=== PATIENT | female | born 1975 | race Caucasian/White ===

== ENCOUNTER → 2016-08-06 | Outpatient (CLI) | payer MEDICARE, OTHER ==
[2016-08-06 13:34] LABS: Blood Urea Nitrogen 11 mg/dL (7-17); Non-African American GFR(MDRD) >60 (>60 ml/min/1.73 sqM)
== END | disposition home or self-care (01) ==
LOC: LABWHC1 12:34
PROVIDERS: ATTEND Anesthesiology Pain Medicine
DX: M54.5 Low back pain (principal)
CPT/HCPCS: 36415; 82565; 84520

== ENCOUNTER → 2016-08-08 | Outpatient (CLI) | payer MEDICARE, OTHER ==
--- NOTE | 2016-08-08 14:28 | MR ---
EXAMINATION TYPE: MR lumbar spine wo/w con DATE OF EXAM: 08/08/2016 COMPARISON: NONE. Contrast: 20 mL MultiHance HISTORY: Low back pain TECHNIQUE: T1 and T2 axial and sagittal, postcontrast T1 axial and sagittal images of the lumbar spi ne are submitted. FINDINGS: There is findings suggestive of previous surgery involving the lower lumbar spine which kimmie ears stable. Slight levoconvex scoliotic curvature noted. At L1-2 there is mild degenerative disc disease. No disc herniation or canal stenosis. No foraminal e ncroachment. At L2-3 there is mild hypertrophic change of the facets and degenerative disc disease. No disc hernia tion or canal stenosis. Neural foramina patent. At L3-4 there is mild hypertrophic change of the facets. No disc herniation or canal stenosis. No for aminal encroachment. At L4-5 there is severe degenerative disc disease with discogenic marrow changes. Broad-based central and right paracentral disc protrusion with facet arthropathy and ligamentum flavum hypertrophy resul ts in mild spinal stenosis and moderate right-sided foraminal encroachment. At L5-S1 there is severe degenerative disc disease with a focal central disc herniation which is stab le results in moderate compression of the thecal sac. Facet arthropathy is noted with moderate left-s ided foraminal encroachment and very mild right-sided foraminal encroachment. IMPRESSION: 1. Stable disc protrusion or herniations L4-L5 and L5-S1 with stable appearing foraminal encroachment as above. 2. Postsurgical change. 3. Multilevel degenerative disc disease.
== END | disposition home or self-care (01) ==
LOC: RADMRIMAIN 13:02
PROVIDERS: ATTEND Anesthesiology Pain Medicine
DX: M51.17 Intervertebral disc disorders with radiculopathy, lumbosacral region (principal); M96.1 Postlaminectomy syndrome, not elsewhere classified; Z98.890 Other specified postprocedural states
CPT/HCPCS: 72158; A9577

== ENCOUNTER → 2017-01-08 | Outpatient (CLI) | payer MEDICARE, OTHER ==
[2017-01-08 10:27] LABS: ALT 56 U/L (9-52); AST 30 U/L (14-36); Alkaline Phosphatase 140 U/L (38-126); Anion Gap 14 mmol/L; Blood Urea Nitrogen 11 mg/dL (7-17); Calcium 9.7 mg/dL (8.4-10.2); Carbon Dioxide 25 mmol/L (22-30); Chloride 96 mmol/L (98-107); Cholesterol 193 mg/dL (<200); Glucose 359 mg/dL (74-99); HDL Cholesterol 55 mg/dL (40-60); Non-African American GFR(MDRD) >60 (>60 ml/min/1.73 sqM); Potassium 4.2 mmol/L (3.5-5.1); Sodium 135 mmol/L (137-145); Total Bilirubin 0.5 mg/dL (0.2-1.3); Total Protein 7.3 g/dL (6.3-8.2)
[2017-01-08 15:01] LABS: Urine Creatinine 75.5 mg/dL
== END | disposition home or self-care (01) ==
LOC: LABWHC1 09:27
PROVIDERS: ATTEND Internal Medicine Endocrinology, Diabetes & Metabolism
DX: E11.65 Type 2 diabetes mellitus with hyperglycemia (principal)
CPT/HCPCS: 36415; 80053; 80061; 82043; 82570

== ENCOUNTER → 2017-03-13 | Outpatient (CLI) | payer MEDICARE, OTHER ==
--- NOTE | 2017-03-14 16:24 | CT ---
EXAMINATION TYPE: CT brain wo con DATE OF EXAM: 03/13/2017 COMPARISON: 03/20/2013 HISTORY: 41-year-old female Memory loss and confusion TECHNIQUE: Examination was done in axial plane without intravenous contrast. Coronal and sagittal r econstructions performed. CT DLP: 1165 mGycm Automated exposure control for dose reduction was used. FINDINGS: There is no evidence of acute intracranial hemorrhage, acute ischemic changes, mass, mass-effect, or extra-axial fluid collection. There is no effacement of cerebral sulci or basal subarachnoid cister ns. There is no hydrocephalus. There is no midline shift. Landeros-white matter distinction is preserv ed. Paranasal sinuses and mastoid air cells are well pneumatized. Orbits and globes are intact. IMPRESSION: No acute intracranial abnormality seen.
== END | disposition home or self-care (01) ==
LOC: RADCTMAIN 10:35
PROVIDERS: ATTEND Internal Medicine
DX: R41.9 Unspecified symptoms and signs involving cognitive functions and awareness (principal); Z88.1 Allergy status to other antibiotic agents; Z88.8 Allergy status to other drugs, medicaments and biological substances
CPT/HCPCS: 70450

== ENCOUNTER → 2017-07-26 | Outpatient (CLI) | payer MEDICARE, OTHER ==
--- NOTE | 2017-07-26 14:36 | XR ---
Left hand HISTORY: Left hand pain 3 views of the left hand No comparisons Bone mineralization, joint spaces and alignment are maintained. No fracture or dislocation. IMPRESSION: No significant abnormality is evident. Wrist MRI may be of benefit.
== END | disposition home or self-care (01) ==
LOC: RADXRMAIN 13:16
PROVIDERS: ATTEND Anesthesiology Pain Medicine
DX: M79.642 Pain in left hand (principal)

== ENCOUNTER → 2018-02-16 | Outpatient (CLI) | payer MEDICARE, OTHER ==
[2018-02-16 16:16] LABS: ALT 27 U/L (9-52); AST 19 U/L (14-36); Albumin 4.2 g/dL (3.5-5.0); Alkaline Phosphatase 175 U/L (38-126); Anion Gap 13 mmol/L; Blood Urea Nitrogen 13 mg/dL (7-17); Calcium 9.7 mg/dL (8.4-10.2); Carbon Dioxide 24 mmol/L (22-30); Chloride 100 mmol/L (98-107); Glucose 489 mg/dL (74-99); Potassium 5.5 mmol/L (3.5-5.1); Sodium 137 mmol/L (137-145); Total Bilirubin 0.3 mg/dL (0.2-1.3); Total Protein 7.2 g/dL (6.3-8.2)
--- NOTE | 2018-02-16 16:29 | MR ---
EXAMINATION TYPE: MR lumbar spine wo con DATE OF EXAM: 02/16/2018 COMPARISON: HISTORY: LBP, LLE radic, hx surgery 2006 TECHNIQUE: Multiplanar, multisequence images of the lumbar spine were acquired. L1-L2: Normal disc appearance without desiccation. No herniation, protrusion or disc bulging. No ca nal stenosis is present. Foramina are patent bilaterally. L2-L3: Normal disc appearance without desiccation. No herniation, protrusion or disc bulging. No ca nal stenosis is present. Foramina are patent bilaterally. L3-L4: Normal disc appearance without desiccation. No herniation, protrusion or disc bulging. No ca nal stenosis is present. Foramina are patent bilaterally. L4-L5: Posterior broad-based disc bulge contacts anterior thecal sac, circumferential extension of en dplate disc complex is noted without significant foraminal encroachment. No significant central steno sis. Facet arthropathy with hypertrophy of ligamentum flavum causes some posterior lateral mass effec t on the thecal sac. L5-S1: Facet arthropathy changes present. No significant central stenosis. There is a posterior exten bri of endplate disc complex causing anterior mass effect on the thecal sac extending towards the le ft midline encroaching on the left neural foramen, there is some anterior mass effect on the thecal s ac and possibly proximal S1 nerve root left greater than right. Lumbar segments are intact. No paraspinal masses are identified. Conus medullaris has a normal appe arance. There is loss of disc height and signal greatest at L4-5, L5-S1 with associated spondylosis, endplate discogenic marrow signal change. There is a levoscoliosis suspected. IMPRESSION: Degenerative disc disease, facet arthropathy as described with some foraminal encroachment greatest a t L5-S1 on the left. There is a mild spinal curvature.
== END | disposition home or self-care (01) ==
LOC: RADMRIMAIN 15:23
PROVIDERS: ATTEND Physician Assistant
DX: M51.37 Other intervertebral disc degeneration, lumbosacral region (principal); M46.87 Other specified inflammatory spondylopathies, lumbosacral region; M43.8X6 Other specified deforming dorsopathies, lumbar region
CPT/HCPCS: 72148; 80053

== ENCOUNTER → 2018-03-14 | Outpatient (CLI) | payer MEDICARE, OTHER ==
--- NOTE | 2018-03-14 14:28 | XR ---
EXAMINATION TYPE: XR thoracic spine complete DATE OF EXAM: 03/14/2018 COMPARISON: NONE HISTORY: Pain Alignment is anatomic. There is no compression deformities. Vertebral body height and disc interspa toby are maintained. There is a curvature of the spine. Hypertrophic and degenerative changes are see n involving the thoracic spine. No compression deformities. IMPRESSION: 1. Multilevel degenerative disc disease. Correlate with MRI as clinically warranted.
== END | disposition home or self-care (01) ==
LOC: RADXRMAIN 13:59
PROVIDERS: ATTEND Anesthesiology Pain Medicine
DX: M51.34 Other intervertebral disc degeneration, thoracic region (principal)
CPT/HCPCS: 72072

== ENCOUNTER → 2018-07-21 | Outpatient (CLI) | payer MEDICARE, OTHER ==
--- NOTE | 2018-07-21 12:48 | CT ---
EXAMINATION TYPE: CT brain wo con DATE OF EXAM: 07/21/2018 COMPARISON: 03/13/2017 INDICATION: TIA, dizziness, unable to form sentences DLP: 1135 mGycm, Automated exposure control for dose reduction was used. CONTRAST: None CT of the brain is performed utilizing 3 mm thick sections through the posterior fossa and 3 mm thick sections through the remaining calvarium. Study is performed within 24 hours of arrival to the hosp [facility]. No abnormal hyperdensity is present to suggest an acute intracranial hemorrhage. No mass lesion is evident. No acute infarcts are evident. Ventricles and sulci are appropriate for the patient age. Paranasal sinuses and mastoid air cells within the [id number] are clear. IMPRESSIONS: 1. No acute intracranial process.
== END | disposition home or self-care (01) ==
LOC: RADCTMAIN 11:51
PROVIDERS: ATTEND Internal Medicine
DX: G45.9 Transient cerebral ischemic attack, unspecified (principal); R40.4 Transient alteration of awareness
CPT/HCPCS: 70450

== ENCOUNTER → 2018-08-15 | Outpatient (CLI) | payer MEDICARE ==
--- NOTE | 2018-08-16 08:29 | US ---
EXAMINATION TYPE: US carotid duplex BILAT DATE OF EXAM: 08/15/2018 COMPARISON: NONE CLINICAL HISTORY: R47.9 Speech disturbance,R42 Vertigo,Z86.[address] EXAM MEASUREMENTS: RIGHT: Peak Systolic Velocity (PSV) cm/sec ----- Right CCA: 76.5 ----- Right ICA: 72.8 ----- Right ECA: 50.0 ICA/CCA ratio: 1.0 RIGHT: End Diastole cm/sec ----- Right CCA: 23.5 ----- Right ICA: 33.6 ----- Right ECA: 10.9 LEFT: Peak Systolic Velocity (PSV) cm/sec ----- Left CCA: 99.3 ----- Left ICA: 71.5 ----- Left ECA: 95.2 ICA/CCA ratio: 0.7 LEFT: End Diastole cm/sec ----- Left CCA: 26.0 ----- Left ICA: 33.6 ----- Left ECA: 21.6 VERTEBRALS (direction of flow): Right Vertebral: Antegrade Left Vertebral: Antegrade Rhythm: Normal No significant stenosis seen IMPRESSION: Mild degree of grayscale atheromatous plaquing with no sonographically evident hemodynam ically significant stenosis within either visualized carotid arterial system. Criteria for Assigning % of Stenosis / Diameter reduction (Estimation based on the indirect measurements of the internal carotid artery velocities (ICA PSV). 1. Normal (no stenosis)=ICA PSV < 125 cm/s: ratio < 2.0: ICA EDV<40 cm/s. 2. Less than 50% stenosis=ICA PSV < 125 cm/s: ratio < 2.0: ICA EDV<40 cm/s. 3. 50 to 69% stenosis=ICA PSV of 125 to 230 cm/s: ration 2.0 ? 4.0: ICA EDV 40-100 cm/s. 4. Greater than 70% stenosis to near occlusion= ICA PSV > 230 cm/s: ratio > 4.0: ICA EDV > 100 cm/s. 5. Near occlusion= ICA PSV velocities may be low or undetectable: variable ratio and ICA EDV. 6. Total occlusion=unable to detect flow.
== END | disposition home or self-care (01) ==
LOC: RADUSMAIN 17:47
PROVIDERS: ATTEND Psychiatry & Neurology Neurology
DX: I65.23 Occlusion and stenosis of bilateral carotid arteries (principal); Z86.73 Personal history of transient ischemic attack (TIA), and cerebral infarction without residual deficits
CPT/HCPCS: 93880

== ENCOUNTER → 2018-08-20 | Outpatient (CLI) | payer MEDICARE ==
--- NOTE | 2018-08-20 14:57 | MR ---
EXAMINATION TYPE: MR lumbar spine wo con DATE OF EXAM: 08/20/2018 COMPARISON: 1226 CT lumbar spine MRI HISTORY: Chronic LBP, LLE radic , surgery 2007 TECHNIQUE: Multiplanar, multisequence images of the lumbar spine were acquired. FINDINGS: The lumbar spine vertebral bodies maintain normal vertebral body heights and alignment. The re are Modic type II degenerative endplate changes at L4-L5 and L5-S1. Conus medullaris is unremarkab le terminating at L1-L2. Multilevel disc desiccation is seen. Probable left renal sinus cysts are not ed of the inferior pole. Unchanged mild spinal curvature. L1-L2: Is disc desiccation and minimal facet arthropathy without spinal canal stenosis nor neural for aminal narrowing. L2-L3: Eccentric disc bulge is seen with mild facet arthropathy without spinal canal stenosis. Mild l eft neural foraminal narrowing is seen. L3-L4: There is a broad-based disc bulge, facet arthropathy and minimal ligamentum flavum buckling re sulting in minimal bilateral neural foraminal narrowing without spinal canal stenosis. L4-L5: There is a small central disc herniation that has occurred in the interim superimposed on a br oad-based disc bulge in combination with facet arthropathy creating mild bilateral neural foraminal n arrowing. No significant spinal canal stenosis. Ligamentum flavum buckling is also seen. L5-S1: There is a central disc herniation that has occurred in the interim superimposed upon a left e ccentric broad-based disc bulge in combination with facet arthropathy that creates minimal right neur al foraminal narrowing, moderate left neural foraminal narrowing and slightly narrows the ventral sub arachnoid space without significant spinal canal stenosis. Scarring is seen within the subcutaneous tissues of the lumbar spine, likely from prior surgical inte rvention. IMPRESSION: 1. New small central disc herniations at L4-L5 and L5-S1 in comparison to the prior exam of 8. These create mild narrowing of the ventral subarachnoid space without significant spinal canal pasquale nosis. 2. Progression of degenerative disc disease throughout the lumbar spine in comparison to the prior ex am resulting in minimal bilateral neural foraminal narrowing at L3-L4, mild left neural foraminal alison rowing at L2-L3, mild bilateral neural foraminal narrowing at L4-L5, minimal right neural foraminal n arrowing at L5-S1 and moderate left neural foraminal narrowing at L5-S1.
== END | disposition home or self-care (01) ==
LOC: RADMRIMAIN 11:53
PROVIDERS: ATTEND Anesthesiology Pain Medicine
DX: M48.061 Spinal stenosis, lumbar region without neurogenic claudication (principal); M48.07 Spinal stenosis, lumbosacral region; M51.26 Other intervertebral disc displacement, lumbar region; M51.27 Other intervertebral disc displacement, lumbosacral region; M51.36 Other intervertebral disc degeneration, lumbar region
CPT/HCPCS: 72148

== ENCOUNTER → 2018-08-20 | Outpatient (CLI) | payer MEDICARE ==
--- NOTE | 2018-08-20 14:11 | MR ---
EXAMINATION TYPE: MR angio head wo con DATE OF EXAM: 08/20/2018 COMPARISON: CT brain dated 07/21/2018 HISTORY: Dizziness, forgetfulness, falling TECHNIQUE: Time of flight images focusing on the [place] were performed without contrast.. 2-D and 3-D postprocessing imaging is performed. FINDINGS: Vertebral arteries are codominant. The basilar artery is patent and unremarkable. Posterior circulati on appears intact. There are patent bilateral posterior to indicating arteries seen and therefore cir carlos alberto of [place] appears intact. The visualized portions of the internal carotid arteries are patent wit hout hemodynamically significant stenosis or occlusion. No dissection of the major intracranial vascu lature is seen. There is a patent anterior commuting artery. No sizable intracranial aneurysm is iden tified. No evidence of arterial venous malformation in the visualized vasculature. IMPRESSION: Unremarkable MRA of the brain with no evidence of major arterial intracranial aneurysm, o cclusion, hemodynamically significant stenosis nor dissection.
--- NOTE | 2018-08-20 14:14 | MR ---
EXAMINATION TYPE: MR brain wo con DATE OF EXAM: 08/20/2018 COMPARISON: NONE HISTORY: Dizziness, forgetfulness, falling TECHNIQUE: Multiplanar, multisequence images of the brain and brainstem is performed without intravenous contras t. FINDINGS: Diffusion weighted images demonstrate no evidence of a recent infarct or other diffusion ab normality. There is no extra-axial fluid collection. There is mild burden nonspecific white matter c hange in the deep white matter and pericallosal white matter. Particularly on the left there is subtl e white matter plaques on image 20 of FLAIR fat sat axial sequence. Punctate foci are also seen in th e juxtacortical white matter. The ventricular system and cisternal spaces are normal in size and kimmie earance. The brain volume is age appropriate. Midline structures demonstrate normal morphology. The craniocervical junction appears within normal limits. The dural venous sinuses appear patent. Very scant mucosal thickening is seen within the ethm oid sinuses. Minimal mucosal thickening is seen in the posterior nasopharynx. The remaining visualize d sinuses are clear and the globes are intact. IMPRESSION: Mild burden nonspecific white matter changes seen however given the distribution there is concern for multiple sclerosis. Correlate with clinical symptoms. Other comment etiologies include v asculitis, sequela of migraines, or sequela of chronic microangiopathy oriented
== END | disposition home or self-care (01) ==
LOC: RADMRIMAIN 11:47
PROVIDERS: ATTEND Psychiatry & Neurology Neurology
DX: R90.89 Other abnormal findings on diagnostic imaging of central nervous system (principal); R42 Dizziness and giddiness; R47.9 Unspecified speech disturbances; Z86.73 Personal history of transient ischemic attack (TIA), and cerebral infarction without residual deficits
CPT/HCPCS: 70544; 70551

== ENCOUNTER 2018-09-29 09:18 | Day surgery (SDC) | payer MEDICARE, OTHER ==
[2018-09-28 11:02] VITALS: BMI 37.1
[~2018-09-29 09:18] MED LIST: LACTATED RINGERS 1,000 ML IV SCH
[2018-09-29 09:47] VITALS: TEMP 97
[2018-09-29 09:56] LABS: Glucose,Whole Blood 259 mg/dL (75-99)
[2018-09-29] MEDS ORDERED: LACTATED RINGERS 1,000 ML IV ONE (10:02)
[2018-09-29] MEDS ORDERED: LIDOCAINE 1% 20 ML VIAL (10MG/ML) FOR IV START INTRADERMA ONE (10:02)
--- NOTE | 2018-09-29 10:57 | P.PCN ---
Date of Procedure: 09/29/18 Procedure(s) Performed: Preoperative diagnosis: Demyelinating disease Post operative diagnoses: same as preoperative diagnosis Anesthesia= moderate sedation with Versed 2 mg and fentanyl 50 g ,and local infiltration with lidocaine 1% 2 mL. Condition: stable Complication: none. Description of the procedure procedure risk and benefits discussed with the patient and family, consent signed. Patient and the procedure area placed in sitting position, sedation was given to decrease patient and anxiety back prepped with chlorhexidine 3 times been local infiltration of the skin and subcutaneous tissue with lidocaine 1% 2 mL for skin and subcu interstitial tissue infiltration at L4 5 levels then 22-gauge Quincke-type needle advanced slowly at L4- 5 interlaminar space there was positive cerebrospinal fluid which was clear, no heme, no paresthesia ,total of 9 ML of clear cerebrospinal fluid collected in 4 different tubes 2-2-1/2 mL in each, then the needle removed and a Band-Aid applied and patient tolerated the procedure well without any complications.
[2018-09-29] MEDS ORDERED: IV FLUID CONTINUATION 1,000 ML IV ONE ×2 (11:10)
[2018-09-29 11:22] LABS: Glucose,Whole Blood 218 mg/dL (75-99)
[2018-09-29 11:33] VITALS: RESP 20
[2018-09-29 11:45] VITALS: BP 134/72; PULSE 80
[2018-09-29 12:56] LABS: Glucose,CSF 127 mg/dL (40-70); Total Protein,CSF 65 mg/dL (12-60)
[2018-09-29 13:03] LABS: T4, Free (Free Thyroxine) 0.65 ng/dL (0.78-2.19)
[2018-09-29 14:34] LABS: Appearance,CSF Clear; CSF Tube Number 4; CSF Tube Volume 2.5; Nucleated Cells, CSF 0 u/L (0-5); Red Blood Cell,CSF 0 u/L (0-10)
[2018-09-29 19:10] LABS: Rheumatoid Factor 5 IU/mL (0-15)
[2018-09-29 21:01] LABS: Anti-DNA, DS unit <1.0 IU/mL; Anti-Smith Ab Interp NEGATIVE (NEGATIVE); DNA Double-Stranded NEGATIVE (NEGATIVE)
[2018-09-30 11:13] LABS: Lyme IgG/IgM 0.05 Index; Lyme IgG/IgM Interp NEGATIVE (NEGATIVE)
[2018-09-30 11:18] LABS: VDRL, Qualitative CSF Nonreactive (Nonreactive)
[2018-09-30 12:08] LABS: APTT 34 Sec(s) (<43); Dilute Russell Viper Venom 38 Sec(s) (<44)
[2018-09-30 12:11] LABS: IgG - CSF 3.2 mg/dL (0.0 - 3.4); Immunoglobulin G 715 mg/dL (700 - 1600)
== END 2018-09-29 11:51 | disposition home or self-care (01) ==
LOC: ORPAIN 09:18
PROVIDERS: ATTEND Specialist
DX: G37.9 Demyelinating disease of central nervous system, unspecified (principal); E11.9 Type 2 diabetes mellitus without complications; Z79.82 Long term (current) use of aspirin; Z88.1 Allergy status to other antibiotic agents; Z88.8 Allergy status to other drugs, medicaments and biological substances
CPT/HCPCS: 62270; 81025; 86592; 86235 ×3; 84439; 88108; 84157; 82945; 82040; 82042; 82784; 83916; 83873; 84443; 84450; 84460; 85730; 86431; 85613; 89050; 84703; 86618; 86780; 86038; 86225; 87801; J2250; J3010; 99152

== ENCOUNTER → 2018-11-30 | Outpatient (CLI) | payer MEDICARE, OTHER | END | disposition home or self-care (01) | LOC: LABWHC1 09:38 | PROVIDERS: ATTEND Internal Medicine Endocrinology, Diabetes & Metabolism | DX: E11.65 Type 2 diabetes mellitus with hyperglycemia (principal) | CPT/HCPCS: 36415; 82947; 84681 ==

== ENCOUNTER → 2019-02-13 | Outpatient (CLI) | payer MEDICARE, OTHER ==
[2019-02-13 23:51] LABS: African American GFR (CKD) 103.9 (60.0-200.0); Albumin 4.6 g/dL (3.80-4.90); Albumin/Globulin Ratio 2.19 (1.60-3.17); Anion Gap 9.3 mmol/L (4.00-12.00); BUN/Creat Ratio 22.5 Ratio (12.00-20.00); Calcium 9.5 mg/dL (8.7-10.3); Carbon Dioxide 28.7 mmol/L (21.6-31.8); Globulin 2.1 g/dL (1.6-3.3); Non-African American GFR(CKD) 89.7 (60.0-200.0); Potassium 4.7 mmol/L (3.5-5.5); Total Bilirubin 0.2 mg/dL (0.2-1.2); Total Protein 6.7 g/dL (6.2-8.2)
[2019-02-14 00:07] LABS: T4, Free (Free Thyroxine) 0.8 ng/dL (0.80-1.80)
[2019-02-14 01:32] LABS: Hemoglobin A1C 10.8 % (4.0-6.0)
== END | disposition home or self-care (01) ==
LOC: LABWHC1 14:50
PROVIDERS: ATTEND Internal Medicine
DX: G89.4 Chronic pain syndrome (principal); E11.9 Type 2 diabetes mellitus without complications; E66.9 Obesity, unspecified; F32.9 Major depressive disorder, single episode, unspecified
CPT/HCPCS: 36415; 80053; 83036; 84439; 84443; 84481

== ENCOUNTER 2022-02-05 12:11 | Day surgery (SDC) | payer MEDICARE, OTHER ==
[2022-02-04 09:55] VITALS: BMI 36.0
[~2022-02-05 12:11] MED LIST changes: -LACTATED RINGERS 1,000 ML IV SCH; +SODIUM CHLORIDE 0.9% 1,000 ML IV SCH
[2022-02-05 12:51] LABS: Glucose,Whole Blood 139 mg/dL (70-110)
[2022-02-05 12:52] VITALS: PULSE 79; RESP 18; TEMP 98.1
[2022-02-05 15:32] VITALS: BP 167/62
--- NOTE | 2022-02-05 18:24 | P.EPPROC ---
- EP Procedure Note Electrophysiology Procedure Note: Diagnosis Recurrent dizzy spells and near syncope Twelve-lead EKG Sinus mechanism normal heart rate 75 beats a minute at rest Narrow QRS normal ST segments no delta waves no epsilon waves normal QT interval Tilt table test for protocol Baseline blood pressure 162/72 mmHg Baseline heart rate 73 beats a minute Patient was tilted upright at an angle of 70 for 40 minutes No change in heart rate blood pressure she complained of chest tightness, cold sweats and back pain through the procedure No change in her to her blood pressure with these symptoms She is the supine at the end of the procedure Impression normal -lead EKG Normal heart rate and blood pressure response to upright tilting
== END 2022-02-05 14:30 | disposition home or self-care (01) ==
LOC: CATHEP 12:11
PROVIDERS: ATTEND Internal Medicine Clinical Cardiac Electrophysiology
DX: R55 Syncope and collapse (principal)
CPT/HCPCS: 93660